=== PATIENT | female | born 1980 | race Caucasian/White ===

== ENCOUNTER 2019-01-22 17:39 | Emergency (ER) | payer OTHER, MEDICAID ==
[~2019-01-22] VITALS: Ht 160 cm; Wt 58.8 kg
[~2019-01-22 17:39] MED LIST: ARM1EACH MC; CYCL-1 PO; HYDR-3965 PO; LEVA15HF4 IH; NORG1TAB56 PO
[2019-01-22 17:58] VITALS: BP 113/73
[2019-01-22] MEDS ORDERED: ketorolac tromethamine 15mg/ml inj. IM ONE (18:50)
[2019-01-22] MEDS ORDERED: orphenadrine citrate 60mg/2ml inj. IM ONE (18:50)
[2019-01-22] MEDS ORDERED: CYCL-1 PO (19:10)
--- NOTE | 2019-01-22 19:27 | NUR ---
called Manjula per request of provider,
== END 2019-01-22 20:25 | disposition home or self-care (01) ==
LOC: ER 17:40
DX: S39.012A Strain of muscle, fascia and tendon of lower back, initial encounter (principal); S13.4XXA Sprain of ligaments of cervical spine, initial encounter; J45.909 Unspecified asthma, uncomplicated; R51 Headache; H53.8 Other visual disturbances; R10.9 Unspecified abdominal pain; Z90.710 Acquired absence of both cervix and uterus; Z56.0 Unemployment, unspecified; Z98.890 Other specified postprocedural states; Z88.5 Allergy status to narcotic agent; Z79.899 Other long term (current) drug therapy; V89.2XXA Person injured in unspecified motor-vehicle accident, traffic, initial encounter; Y93.89 Activity, other specified; Y92.89 Other specified places as the place of occurrence of the external cause; Y99.8 Other external cause status
CPT/HCPCS: 96372; 99283; J1885; J2360

== ENCOUNTER 2021-05-31 14:38 | Emergency (ER) | payer MEDICAID ==
[~2021-05-31] VITALS: Ht 165.1 cm; Wt 59.1 kg
[~2021-05-31 14:38] MED LIST changes: -NORG1TAB56 PO; +NORG1TAB90 PO
[2021-05-31 14:59] LABS: BASOPHILS # (AUTO) 0.1 X10'3 (0-0.2); BASOPHILS % (AUTO) 0.8 % (0-1); EOSINOPHILS # (AUTO) 0.1 X10'3 (0-0.9); EOSINOPHILS % (AUTO) 1.4 % (0-6); HEMOGLOBIN 13.8 g/dl (12.0-16.0); LYMPHOCYTES # (AUTO) 2.4 X10'3 (1.1-4.8); LYMPHOCYTES % (AUTO) 26.2 % (21-51); MEAN CORPUSCULAR HGB CONC 34.4 g/dL (33.0-36.5); MEAN CORPUSCULAR VOLUME 98.8 FL (78-98); MEAN PLATELET VOLUME 7.5 FL (7.4-10.4); MONOCYTES # (AUTO) 0.7 X10'3 (0-0.9); MONOCYTES % (AUTO) 7.3 % (2-12); NEUTROPHILS # (AUTO) 5.9 X10'3 (1.8-7.7); NEUTROPHILS % (AUTO) 64.3 % (42-75); PLATELET COUNT 296 X10'3 (140-440); RED BLOOD COUNT 4.05 X10'6 (4.20-5.60); RED CELL DISTRIBUTION WIDTH 13.2 % (11.5-14.5); WHITE BLOOD COUNT 9.2 X10'3 (4.5-11.0)
[2021-05-31 15:05] LABS: URINE HCG NEGATIVE (NEG)
[2021-05-31 15:07] LABS: CLARITY,URINE CLEAR (Clear); COLOR,URINE YELLOW (Yellow); GLUCOSE, URINE NEGATIVE (Neg); KETONES,URINE NEGATIVE (Neg); LEUKOCYTE ESTERASE ,URINE NEGATIVE (Neg); NITRITES, URINE NEGATIVE (Neg); OCCULT BLOOD,URINE SMALL (Neg); PROTEIN,URINE NEGATIVE (Neg); UA COLLECTION TYPE CLN CATCH MIDSTREAM; UROBILINOGEN,URINE 0.2 E.U/dL (0.2-1.0)
[2021-05-31 15:12] LABS: BACTERIA,URINE FEW /HPF (Neg); MUCUS STRANDS FEW /LPF (Neg); SQUAMOUS EPITHELIAL CELL,UR MANY /LPF (FEW); WBC,URINE 0-4 /HPF (0-4)
[2021-05-31 15:14] LABS: ALANINE AMINOTRANSFERASE 21 U/L (12-78); ALBUMIN 4.1 G/DL (3.4-5.0); ALBUMIN/GLOBULIN RATIO 1.1 (1.1-1.5); ALKALINE PHOSPHATASE 63 IU/L (46-116); ANION GAP 12 (8-16); ASPARTATE AMINO TRANSFERASE 8 U/L (10-37); BILIRUBIN,TOTAL 0.3 MG/DL (0.1-1.0); BLOOD UREA NITROGEN 24 MG/DL (7-18); BUN/CREATININE RATIO 27.6 (6.6-38.0); CHLORIDE 107 MMOL/L (99-107); CREATININE 0.87 MG/DL (0.40-0.90); GLUCOSE 88 MG/DL (70-104); POTASSIUM 3.6 MMOL/L (3.5-5.1); SODIUM 144 MMOL/L (135-145); TOTAL PROTEIN 7.9 G/DL (6.4-8.2); eGFR 71 ML/MIN
[2021-05-31] MEDS ORDERED: ketorolac tromethamine 15mg/ml inj. IM ONE (16:35)
[2021-05-31] MEDS ORDERED: CYCL-1 PO (16:36)
[2021-05-31] MEDS ORDERED: ACET-1025 PO (16:36)
[2021-05-31] MEDS ORDERED: CefTRIAXone 1000mg IM Kit (w/lidocaine diluent) IM STA (16:41)
[2021-05-31] MEDS ORDERED: DOXY100C76 PO (16:42)
[2021-05-31] MEDS ORDERED: azithromycin 250mg tablet PO ONE (16:45)
[2021-05-31] MEDS ORDERED: CefTRIAXone 500MG IM Kit w/LIDOcaine IM ONE ×2 (16:50→17:25)
[2021-05-31] MEDS ORDERED: CefTRIAXone 1000mg IM Kit (w/lidocaine diluent) IM ONE (17:30)
[2021-05-31 18:15] VITALS: BP 122/68
== END 2021-05-31 18:18 | disposition home or self-care (01) ==
LOC: ER 14:39
DX: R10.9 Unspecified abdominal pain (principal); J45.909 Unspecified asthma, uncomplicated; Z56.0 Unemployment, unspecified; Z88.5 Allergy status to narcotic agent; Z88.8 Allergy status to other drugs, medicaments and biological substances; Z79.899 Other long term (current) drug therapy
CPT/HCPCS: 36415; 76856; 80053; 81001; 81025; 85025; 87491; 87591; 93976; 96372; 99284; J0696; J1885

== ENCOUNTER 2022-08-27 15:35 | Emergency (ER) | payer MEDICAID ==
[~2022-08-27] VITALS: Ht 165.1 cm; Wt 60.0 kg
[2022-08-27 15:42] VITALS: BP 106/56
== END 2022-08-27 18:07 | disposition left against medical advice (07) ==
LOC: ER 15:35
DX: M79.602 Pain in left arm (principal); Z53.21 Procedure and treatment not carried out due to patient leaving prior to being seen by health care provider

== ENCOUNTER 2024-07-21 11:13 | Outpatient (CLI) | payer MEDICAID | END 2024-07-21 23:59 | disposition home or self-care (01) | LOC: MRI02 11:13 | PROVIDERS: ATTEND Orthopaedic Surgery Hand Surgery | DX: G56.01 Carpal tunnel syndrome, right upper limb (principal); G56.02 Carpal tunnel syndrome, left upper limb; D21.11 Benign neoplasm of connective and other soft tissue of right upper limb, including shoulder; M79.631 Pain in right forearm | CPT/HCPCS: 73221 ==

== ENCOUNTER 2024-11-19 12:54 | Emergency (ER) | payer MEDICAID ==
[~2024-11-19] VITALS: Ht 165.1 cm; Wt 64.8 kg
[2024-11-19 13:02] VITALS: BP 125/83; PULSE 64; RESP 16; TEMP 97.3; O2SAT 100
[2024-11-19 13:39] LABS: BASOPHILS # (AUTO) 0.1 X10'3 (0-0.2); BASOPHILS % (AUTO) 0.7 % (0-1); EOSINOPHILS # (AUTO) 0.2 X10'3 (0-0.9); EOSINOPHILS % (AUTO) 2.9 % (0-6); HEMOGLOBIN 13.9 g/dl (12.0-16.0); LYMPHOCYTES # (AUTO) 2.8 X10'3 (1.1-4.8); LYMPHOCYTES % (AUTO) 35.9 % (21-51); MEAN CORPUSCULAR HEMOGLOBIN 31.4 PG (27.0-31.0); MEAN CORPUSCULAR HGB CONC 33.1 g/dL (33.0-36.5); MEAN CORPUSCULAR VOLUME 94.9 FL (78-98); MEAN PLATELET VOLUME 7.1 FL (7.4-10.4); MONOCYTES # (AUTO) 0.6 X10'3 (0-0.9); MONOCYTES % (AUTO) 7.2 % (2-12); NEUTROPHILS # (AUTO) 4.1 X10'3 (1.8-7.7); NEUTROPHILS % (AUTO) 53.3 % (42-75); PLATELET COUNT 317 X10'3 (140-440); RED BLOOD COUNT 4.43 X10'6 (4.20-5.60); WHITE BLOOD COUNT 7.7 X10'3 (4.5-11.0)
[2024-11-19 13:51] LABS: ALANINE AMINOTRANSFERASE 32 U/L (12-78); ALBUMIN 3.9 G/DL (3.4-5.0); ALBUMIN/GLOBULIN RATIO 1.1 (1.1-1.5); ALKALINE PHOSPHATASE 93 IU/L (46-116); ANION GAP 10 (8-16); ASPARTATE AMINO TRANSFERASE 18 U/L (10-37); BILIRUBIN,TOTAL 0.4 MG/DL (0.1-1.0); BLOOD UREA NITROGEN 21 MG/DL (7-18); CALCIUM 8.8 MG/DL (8.5-10.1); CHLORIDE 105 MMOL/L (99-107); CREATININE 0.84 MG/DL (0.40-0.90); GLUCOSE 96 MG/DL (70-104); POTASSIUM 4.3 MMOL/L (3.5-5.1); SODIUM 142 MMOL/L (135-145); TOTAL CARBON DIOXIDE 26.8 MMOL/L (24-32); TOTAL PROTEIN 7.3 G/DL (6.4-8.2); eCRCL 76 ML/MIN; eGFR 73 ML/MIN
--- NOTE | 2024-11-19 14:57 | Physician Documentation ---
History of Present Illness ~ Chief Complaint: Vaginal pain Stated Complaint: ABNORMAL VAGINAL ULTRASOUND Time Seen by MD: 14:38 OK to notify your PCP?: Yes Primary Medical Doctor: MARIA FERNANDA Selbysta [facility] Source: patient Mode of Arrival: POV Exam Limitations: no limitations HPI A 44-year-old female who comes in stating that she is status post hysterectomy and bladder sling some years ago. The patient states that is she believes that the bladder is sling is poking through the wall of her vagina and as of late she has been having a small amount of bleeding from inside the vagina. She has an ultrasound with her of the vagina that she wants a 2nd opinion on. She states that her primary care physician did not give her much information and told her to follow up with the OBGYN. The patient states she isn't some pain and has been for the past two years. The ultrasound reading shows a possible polyp or small hemorrhage the distal canal of the vagina. Medication Reconciliation Allergies: Coded Allergies: sulfamethoxazole (Verified Allergy, Severe, 11/19/24) dizzy, n/v. trimethoprim (Verified Allergy, Severe, 11/19/24) dizzy, n/v. codeine (Unverified Allergy, Unknown, 09/23/14) Scheduled Cyclobenzaprine* (Cyclobenzaprine*), 1 TAB PO HS Cyclobenzaprine* (Cyclobenzaprine*), 1 TAB PO Q8H Scheduled PRN Cyclobenzaprine* (Cyclobenzaprine*), 1 TABLET PO Q8H PRN for muscle spasms Hydrocodone Bit/Acetaminophen 5/325 MG ([place] 5/325 MG), 1 TAB PO Q4H PRN for moderate or severe pain Levalbuterol Tartrate* (Xopenex Inhaler*), 2 PUFF IH Q4H PRN for SOB or wheezing, (Reported) Miscellaneous Medications Norgestimate-Ethinyl Estradiol (Ortho Tri-Cyclen), 1 EACH PO, (Reported) Durable Medical Equipment Arm Brace (Wrist Brace), 1 EACH MC DAILY PRN for wrist pain, (DME) Past Medical History Past Medical History: Asthma Past Surgical History: hysterectomy Alcohol Use: Occasionally Drug Use: none Lives with: Family Lives In: Home Occupation: unemployed Physical Exam Vital Signs: Temperature: 97.3, Heart Rate: 64, Respiratory Rate: 16, BP: 125/83, Pulse Oximetry: 100, Weight: 64.800 Pulse Oximetry Reflects: adequate oxygenation General Appearance: alert, WD/WN, no apparent distress /Pelvic With Libby DONALDSON in his my female marine gear keeper I performed with the pelvic exam. There was no external lesions or obvious hemorrhaging from the opening of the vaginal canal. No polyps masses or hemorrhaging of the vaginal canal itself. There was a questionable area of blanching with the speculum at the ceiling of the vagina at the distal aspect of the vagina canal. No obvious palpable mass in the area. There was some thin whitish discharge down in the vaginal vault against the cervix. No significant pain during the pelvic exam. Progress Results/Orders Reviewed/noted all lab results: Yes Results/Orders Vital Signs 11/19/24 11/19/24 13:02 14:48 Temp 97.3 Pulse 64 Resp 16 B/P (MAP) 125/83 Pulse Ox 100 Laboratory Tests Test 11/19/24 13:19 White Blood Count 7.7 Red Blood Count 4.43 Hemoglobin 13.9 Hematocrit 42.0 Mean Corpuscular Volume 94.9 Mean Corpuscular Hemoglobin 31.4 H Mean Corpuscular Hemoglobin Concent 33.1 Red Cell Distribution Width 13.0 Platelet Count 317 Mean Platelet Volume 7.1 L Neutrophils (%) (Auto) 53.3 Lymphocytes (%) (Auto) 35.9 Monocytes (%) (Auto) 7.2 Eosinophils (%) (Auto) 2.9 Basophils (%) (Auto) 0.7 Neutrophils # (Auto) 4.1 Lymphocytes # (Auto) 2.8 Monocytes # (Auto) 0.6 Eosinophils # (Auto) 0.2 Basophils # (Auto) 0.1 CBC Comment Sodium Level 142 Potassium Level 4.3 Chloride Level 105 Carbon Dioxide Level 26.8 Anion Gap 10 Blood Urea Nitrogen 21 H Creatinine 0.84 Estimated GFR/1.73 m2 73 BUN/Creatinine Ratio 25.0 H Glucose Level 96 Calcium Level 8.8 Total Bilirubin 0.4 Aspartate Amino Transf (AST/SGOT) 18 Alanine Aminotransferase (ALT/SGPT) 32 Alkaline Phosphatase 93 Total Protein 7.3 Albumin 3.9 Globulin 3.4 Albumin/Globulin Ratio 1.1 Chemistry Comments Medical Decision Making Findings He vaginal inspection did not show any hemorrhagic polyps masses or wounds. There was an area of the ceiling of the outer ear canal that would teresa with a speculum and I believe this is the area the patient is concerned about the bladder sling impinging upon this probably represents a cystocele. I told the patient she asked to follow up back up with the OBGYN to have revision of the bladder sling if it is causing her discomfort. Right now there was nothing to indicate hemorrhaging as the patient's physical examination and vital signs are all within normal limits. Lab work was all within normal limits as well. Additional Comment Vaginal wall polyp. Failed bladder sling. Departure Disposition: 01 HOME / SELF CARE / HOMELESS Impression: Primary Impression: Cystocele Condition: Stable Referrals: NO PRIMARY CARE PROVIDER (PCP) Signature Scribe Signature: No scribe Attestation: The note accurately reflects work and decisions made by me.Porter ALLEN 11/19/24 15:27 PORTER MAZA November 19, 2024 14:57
== END 2024-11-19 15:36 | disposition home or self-care (01) ==
LOC: ER 12:55
DX: N81.10 Cystocele, unspecified (principal); J45.909 Unspecified asthma, uncomplicated; Z88.2 Allergy status to sulfonamides; Z88.5 Allergy status to narcotic agent; Z56.0 Unemployment, unspecified; Z72.89 Other problems related to lifestyle
CPT/HCPCS: 36415; 80053; 85025; 99283; 99284